=== PATIENT | female | born 1970 | race African-American/Black ===

== ENCOUNTER 2018-11-29 11:29 | Emergency (ER) | payer MEDICARE, MEDICAID ==
[~2018-11-29] VITALS: Ht 165.1 cm; Wt 68.0 kg
[2018-11-29] MEDS ORDERED: DIAZEPAM 5 MG TABLET PO ONE (12:45)
[2018-11-29] MEDS ORDERED: KETOROLAC 60MG/2ML VIAL IM ONE (12:45)
[2018-11-29 15:32] VITALS: BP 131/91
== END 2018-11-29 15:35 | disposition home or self-care (01) ==
LOC: ER 11:29
DX: M16.12 Unilateral primary osteoarthritis, left hip (principal); I10 Essential (primary) hypertension; F17.200 Nicotine dependence, unspecified, uncomplicated
CPT/HCPCS: 72100; 73502; 81025; 99283

== ENCOUNTER 2019-10-26 12:46 | Emergency (ER) | payer MEDICARE, MEDICAID ==
[~2019-10-26] VITALS: Ht 165.1 cm; Wt 63.0 kg
[2019-10-26 13:05] VITALS: BP 160/78
[2019-10-26] MEDS ORDERED: HYDROCODONE/ACETAMINOPHEN 5/325MG TABLET PO ONE (14:15)
[2019-10-26] MEDS ORDERED: MAGNESIUM/ALUMINUM HYDROXIDE/SIMETHICONE 30ML UDC PO ONE (14:45)
== END 2019-10-26 14:45 | disposition home or self-care (01) ==
LOC: ER 13:02
DX: G89.29 Other chronic pain (principal); M54.40 Lumbago with sciatica, unspecified side; I10 Essential (primary) hypertension; M19.90 Unspecified osteoarthritis, unspecified site
CPT/HCPCS: 99282

== ENCOUNTER 2022-05-19 12:14 | Emergency (ER) | payer BC, MEDICAID ==
[~2022-05-19] VITALS: Ht 165.1 cm; Wt 72.5 kg
[2022-05-19 12:22] VITALS: BP 177/113
[2022-05-19] MEDS ORDERED: ACETAMINOPHEN 325MG TABLET PO ONE (13:00)
[2022-05-19] MEDS ORDERED: LIDO1ADH23 TP (14:44)
== END 2022-05-19 14:05 | disposition home or self-care (01) ==
LOC: ER 12:14
DX: M25.552 Pain in left hip (principal); M79.605 Pain in left leg; I10 Essential (primary) hypertension; W01.0XXA Fall on same level from slipping, tripping and stumbling without subsequent striking against object, initial encounter; Y93.89 Activity, other specified; Y92.89 Other specified places as the place of occurrence of the external cause; Y99.8 Other external cause status
CPT/HCPCS: 73502; 73552; 99284